=== PATIENT | female | born 1985 | race Caucasian/White ===

== ENCOUNTER 2021-07-14 16:56 | Emergency (ER) | payer MEDICAID ==
[~2021-07-14] VITALS: Ht 160 cm; Wt 62.0 kg
[2021-07-14 17:14] VITALS: BP 123/83
[2021-07-14] MEDS ORDERED: AMOX-422 PO (18:15)
[2021-07-14] MEDS ORDERED: PRED20TA PO (18:15)
[2021-07-14] MEDS ORDERED: ALBU6.7H9 INH (18:16)
== END 2021-07-14 18:35 | disposition home or self-care (01) ==
LOC: ER 16:57
DX: U07.1 COVID-19 (principal); J40 Bronchitis, not specified as acute or chronic; R51.9 Headache, unspecified; R05.9 Cough, unspecified; R06.02 Shortness of breath; Z79.2 Long term (current) use of antibiotics; Z79.899 Other long term (current) drug therapy
CPT/HCPCS: 71045; 87635; 99284; C9803

== ENCOUNTER 2023-09-01 11:27 | Emergency (ER) | payer MEDICAID ==
[~2023-09-01] VITALS: Ht 165.1 cm; Wt 63.6 kg
[~2023-09-01 11:27] MED LIST: ALBU6.7H14 INH
[2023-09-01 11:31] VITALS: BP 151/95; PULSE 84; RESP 16; TEMP 98; O2SAT 98
[2023-09-01] MEDS ORDERED: NAPR-56 PO (12:33)
== END 2023-09-01 12:41 | disposition home or self-care (01) ==
LOC: ER 11:27
DX: S93.601A Unspecified sprain of right foot, initial encounter (principal); Z88.8 Allergy status to other drugs, medicaments and biological substances; Z79.899 Other long term (current) drug therapy; W18.43XA Slipping, tripping and stumbling without falling due to stepping from one level to another, initial encounter; Y93.89 Activity, other specified; Y92.89 Other specified places as the place of occurrence of the external cause; Y99.8 Other external cause status
CPT/HCPCS: 73630; 99283